=== PATIENT | female | born 1980 | race Caucasian/White ===

== ENCOUNTER 2016-11-19 09:48 | Emergency (ER) | payer BC ==
[~2016-11-19] VITALS: Ht 170.2 cm; Wt 60.1 kg
[~2016-11-19 09:48] MED LIST: MTR600X PO; PRENTAB26 PO
[2016-11-19 09:51] VITALS: TEMP 36.7; Ht 170.2 cm; Wt 60.1 kg
[2016-11-19] MEDS ORDERED: SODIUM CHLORIDE 0.9% 1000ML 1,000 ML IV STA ×2 (10:23)
[2016-11-19] MEDS ORDERED: FENTANYL CITRATE INJ 50 MCG/1 ML 2 ML VIAL IV STA (10:23)
[2016-11-19] MEDS ORDERED: ONDANSETRON INJ 2 MG/ML 2 ML VIAL IV STA ×2 (10:23→13:47)
[2016-11-19] MEDS ORDERED: OPTIRAY 320 IV PRN (10:30)
[2016-11-19 10:50] LABS: BASO % 0.2 %; BASO ABS # 0.02 K/uL (0-0.2); COMPLETE YES; EOS % 0.2 %; HEMATOCRIT 40.1 % (37-47); IG% 0.2 %; LYMPH % 6.4 %; LYMPH ABS # 0.75 K/uL (1.2-3.4); MEAN CELL VOLUME 92.4 fL (80-100); MEAN CORPUSCULAR HEMOGLOBIN 31.3 pg (25-34); MEAN CORPUSCULAR HGB CONC 33.9 g/dl (32-36); MEAN PLATELET VOLUME 10.5 fL (7.4-10.4); MONO % 2.4 %; NEUT % 90.6 %; PLATELET COUNT 243 K/uL (130-400); RED BLOOD COUNT 4.34 M/uL (4.2-5.4); WHITE BLOOD COUNT 11.78 K/uL (4.8-10.8)
[2016-11-19 10:56] LABS: BUN/CREATININE RATIO 18.6 (10-20); CREATININE 0.67 mg/dl (0.60-1.20); POTASSIUM 3.3 mmol/L (3.5-5.1)
[2016-11-19 10:58] LABS: ALB/GLOB RATIO 1.2 (0.9-2)
[2016-11-19 11:12] LABS: URINE APPEARANCE CLEAR (CLEAR); URINE BILIRUBIN NEG (NEG); URINE COLOR YELLOW; URINE NITRITE NEG (NEG); URINE SPECIFIC GRAVITY 1.017 (1.000-1.030); UROBILINOGEN NEG (NEG)
[2016-11-19 11:18] LABS: MANUAL MICROSCOPIC REQUIRED? NO; REVIEW REQ? NO
--- NOTE | 2016-11-19 13:34 | DIAGNOSTIC IMAGING REPORT ---
CT SCAN OF THE ABDOMEN AND PELVIS WITH IV CONTRAST CLINICAL HISTORY: Nausea and bloating. Right-sided abdominal pain. COMPARISON STUDY: No priors. TECHNIQUE: Following the IV administration of 93 cc of Optiray 320, CT scan of the abdomen and pelvis is performed from the lung bases to the proximal femora. Images are reviewed in the axial, sagittal, and coronal planes. IV contrast was administered without complication. Automated dose control exposure was utilized. CT DOSE: 341.63 mGycm FINDINGS: Lung bases: The heart is normal in size and without pericardial effusion. There is a trace left pleural effusion and dependent atelectasis. The lung bases are otherwise clear. Liver: The contrast-enhanced liver is normal in size, contour, and attenuation. There is no intrahepatic biliary ductal dilatation. The hepatic veins and portal veins are patent. Gallbladder: Unremarkable. Spleen: Normal in size and attenuation. Pancreas: Unremarkable. Adrenal glands: Unremarkable. Kidneys: The contrast enhanced kidneys are normal in size and without hydronephrosis. The kidneys enhance symmetrically. A 1.2 cm cyst is noted in the right upper pole. There is a small volume of free fluid in the cul-de-sac. Abdominal vasculature: The abdominal aorta is normal in course and caliber. Bowel: The small bowel and colon are normal in course and caliber. There is moderate colonic fecal retention. The appendix is not clearly visualized. Peritoneum: There is no intraperitoneal free air or abdominal ascites. Lymphadenopathy: None. Pelvic viscera: The bladder and uterus are normal as imaged. Bilateral ovarian follicles are observed. The largest is on the right and measures 2.6 cm. Skeletal structures: No lytic or blastic lesions are seen. Mild lumbosacral scoliosis is noted. There is degenerative sclerosis and partial fusion of the sacroiliac joints. IMPRESSION: 1. There are no acute infectious or inflammatory findings in the abdomen or pelvis noting nonvisualization of the appendix. If there is strong clinical concern for acute appendicitis then short-term follow-up should be considered. 2. There is a small volume of free fluid in the cul-de-sac, likely within physiologic limits. Electronically signed by: Valeriano Almanza M.D. 11/19/2016 1:33 PM Dictated Date/Time: 11/19/2016 1:25 PM
[2016-11-19] MEDS ORDERED: MoRPHine SULFATE 4 MG/ML 1 ML CARP\\VIAL IV STA (13:47)
[2016-11-19] MEDS ORDERED: MoRPHine SULFATE 4 MG/ML 1 ML CARP\\VIAL IV PRN (14:00)
--- NOTE | 2016-11-19 15:22 | DIAGNOSTIC IMAGING REPORT ---
PELVIC ULTRASOUND CLINICAL HISTORY: Right-sided abdominal pain. Right ovarian cyst by CT. COMPARISON STUDY: Pelvic ultrasound September 01, [address] of the abdomen and pelvis November 19, 2016. TECHNIQUE: Transabdominal and transvaginal sonography of the pelvis was performed. FINDINGS: The uterus measures 7.7 x 4.5 x 5.5 cm. Endometrium measures 1 cm in thickness. The right ovary measures 2.9 x 2.9 x 2.5 cm and the left measures 2.2 x 3.2 x 2.4 cm. There are follicles within each ovary. Color flow is identified within each ovary. A small amount of fluid is noted within the pelvis. There is fluid within the endometrial cavity. IMPRESSION: 1. No sonographic evidence of ovarian torsion. 2. Several follicles within the ovaries. 3. Small amount of fluid within the pelvis. Electronically signed by: Cezar David M.D. 11/19/2016 3:20 PM Dictated Date/Time: 11/19/2016 3:17 PM
--- NOTE | 2016-11-19 15:38 | EMERGENCY ROOM VISIT NOTE ---
History First contact with patient: 10:01 Chief Complaint: ABDOMINAL PAIN Stated Complaint: STOMACH PAIN Nursing Triage Summary: pt developed "gas pain" last pm at 2000 hours pt reports some nausea took Ga X no relief pt saw pcp this am and referred to ER for appey rule out History of Present Illness Patient is an otherwise healthy 36-year-old white female who presents to emergency department for evaluation of abdominal pain times roughly 12 hours. She states that she was feeling well and was in her usual state of health until yesterday evening. She began to develop some generalized abdominal discomfort. She describes it as feeling "gassy." The pain steadily escalated throughout the evening. She tried taking Gas-X and an acid, without relief. The pain was at its worst between midnight and 1:30 this morning. She denies nausea or vomiting, but does note some belching. She states that at its worst she would' ve rated it a 10/10, and was curled up on the floor, she describes it as feeling like she was "in labor." The pain subsided on its own between 1:30 and 5:00 this morning and she was able to sleep. She states the pain again began to increase when she woke up. She states that she felt a lot of pressure, but it was milder than it had been over 90. She again took Gas-X this morning which she states did help slightly. She was able to get in to see her PCP, Dr. Stephen, who went and examined her, noted that she had right lower quadrant pain and thus directed her to the emergency department for further care and evaluation. She reportedly had a low-grade fever at the [facility] office, but denies feeling feverish or having chills at home and is afebrile here. She presently rates her discomfort a 3/10. She reports a history of dysmenorrhea, which was primarily when she was younger, and denies any history of gynecologic issues or ovarian cyst. Last menstrual cycle was 2 weeks ago. She denies any urinary symptoms. Bowel movements have been fairly normal, she states she had 2 small bowel movements yesterday, denies blood or melena. Pain is essentially throughout the entire abdomen, does not wrap around to the back or flanks. She has a history of C-sections 2. Review of Systems Review of systems as per HPI. All other systems reviewed were negative. 10 systems reviewed. Past Medical/Surgical History Medical Problems: (1) No Known Active Medical Problems Surgical Problems: (1) H/O section Electronic medical records are reviewed and summarized as above/below. See Problem List. Social History Smoking Status: Never Smoker Alcohol Use: occasionally Marital Status: Housing Status: lives with family Occupation Status: employed Current/Historical Medications Scheduled PRN Hydrocodone/Acetaminophen 5MG/325MG (Amston 5MG/325MG), 1-4 TABLETS PO Q4 PRN for Pain Allergies Coded Allergies: Amoxicillin (Verified Allergy, Intermediate, HIVES, 11/19/16) Cefixime (Verified Allergy, Intermediate, HIVES, 11/19/16) Cephalexin (Verified Allergy, Intermediate, HIVES, 11/19/16) Clavulanic Acid (Verified Allergy, Intermediate, HIVES, 11/19/16) Erythromycin (Verified Allergy, Intermediate, HIVES, 11/19/16) Penicillins (Verified Allergy, Intermediate, HIVES, 11/19/16) Sodium Benzoate (Verified Allergy, Intermediate, HIVES, 11/19/16) Sulfa Drugs (Verified Allergy, Intermediate, HIVES, 11/19/16) Tetracycline (Verified Allergy, Intermediate, HIVES, 11/19/16) Physical Exam Vital Signs Date Time Temp Pulse Resp B/P Pulse Ox O2 Delivery O2 Flow Rate FiO2 11/19/16 14:57 74 16 120/72 100 Room Air 11/19/16 14:08 79 20 127/98 100 Room Air 11/19/16 11:20 74 20 108/74 97 11/19/16 09:51 36.7 94 18 148/73 100 Room Air Physical Exam CONSTITUTIONAL: Patient is a thin, mildly uncomfortable 36-year-old white female who is awake and alert and in no acute distress. EYES: Pupils equal, round, reactive to light and accommodation. EOMs intact without nystagmus. Sclera are anicteric. ENT: Tympanic membranes intact, with normal landmarks. External canals are clear. Oral and nasopharynx are clear. Mucous membranes are moist, no lesions , tongue and gums appear normal. CARDIOVASCULAR: Regular rate and rhythm, with normal S1 and S2, no murmur or gallop or rub is heard. No carotid bruits auscultated. No JVD. Peripheral pulses easy to palpable. RESPIRATORY: Breath sounds equal and clear to auscultation without wheezes, rales, or rhonchi heard. Full and equal chest expansion without accessory muscle use or retractions. GI: Bowel sounds are present. Well-healed Pfannenstiel surgical incision noted. Abdomen is soft, nondistended, diffusely tender to percussion throughout. She has discomfort in the suprapubic and right lower quadrants, with voluntary guarding. No rebound tenderness. MUSCULOSKELETAL: Full range of motion of extremities x 4 with good strength. No cyanosis, edema, joint tenderness or swelling. No deformity. INTEGUMENTARY: No lesions or rash, normal skin turgor. NEUROLOGICAL: Alert, oriented, and cooperative. Cranial nerves, sensation and strength grossly intact. Pupils round, equal, and react to light, EOMs are full. LYMPH: No lymphadenopathy. Medical Decision & Procedures ER Provider Diagnostic Interpretation: PELVIC ULTRASOUND CLINICAL HISTORY: Right-sided abdominal pain. Right ovarian cyst by CT. COMPARISON STUDY: Pelvic ultrasound September 01, [address] of the abdomen and pelvis November 19, 2016. TECHNIQUE: Transabdominal and transvaginal sonography of the pelvis was performed. FINDINGS: The uterus measures 7.7 x 4.5 x 5.5 cm. Endometrium measures 1 cm in thickness. The right ovary measures 2.9 x 2.9 x 2.5 cm and the left measures 2.2 x 3.2 x 2.4 cm. There are follicles within each ovary. Color flow is identified within each ovary. A small amount of fluid is noted within the pelvis. There is fluid within the endometrial cavity. IMPRESSION: 1. No sonographic evidence of ovarian torsion. 2. Several follicles within the ovaries. 3. Small amount of fluid within the pelvis. CT SCAN OF THE ABDOMEN AND PELVIS WITH IV CONTRAST CLINICAL HISTORY: Nausea and bloating. Right-sided abdominal pain. COMPARISON STUDY: No priors. TECHNIQUE: Following the IV administration of 93 cc of Optiray 320, CT scan of the abdomen and pelvis is performed from the lung bases to the proximal femora. Images are reviewed in the axial, sagittal, and coronal planes. IV contrast was administered without complication. Automated dose control exposure was utilized. CT DOSE: 341.63 mGycm FINDINGS: Lung bases: The heart is normal in size and without pericardial effusion. There is a trace left pleural effusion and dependent atelectasis. The lung bases are otherwise clear. Liver: The contrast-enhanced liver is normal in size, contour, and attenuation. There is no intrahepatic biliary ductal dilatation. The hepatic veins and portal veins are patent. Gallbladder: Unremarkable. Spleen: Normal in size and attenuation. Pancreas: Unremarkable. Adrenal glands: Unremarkable. Kidneys: The contrast enhanced kidneys are normal in size and without hydronephrosis. The kidneys enhance symmetrically. A 1.2 cm cyst is noted in the right upper pole. There is a small volume of free fluid in the cul-de-sac. Abdominal vasculature: The abdominal aorta is normal in course and caliber. Bowel: The small bowel and colon are normal in course and caliber. There is moderate colonic fecal retention. The appendix is not clearly visualized. Peritoneum: There is no intraperitoneal free air or abdominal ascites. Lymphadenopathy: None. Pelvic viscera: The bladder and uterus are normal as imaged. Bilateral ovarian follicles are observed. The largest is on the right and measures 2.6 cm. Skeletal structures: No lytic or blastic lesions are seen. Mild lumbosacral scoliosis is noted. There is degenerative sclerosis and partial fusion of the sacroiliac joints. IMPRESSION: 1. There are no acute infectious or inflammatory findings in the abdomen or pelvis noting nonvisualization of the appendix. If there is strong clinical concern for acute appendicitis then short-term follow-up should be considered. 2. There is a small volume of free fluid in the cul-de-sac, likely within physiologic limits. Laboratory Results 11/19/16 10:05 Red Blood Count 4.34, Mean Corpuscular Volume 92.4, Mean Corpuscular Hemoglobin 31.3, Mean Corpuscular Hemoglobin Concent 33.9, Mean Platelet Volume 10.5, Neutrophils (%) (Auto) 90.6, Lymphocytes (%) (Auto) 6.4, Monocytes (%) (Auto) 2.4, Eosinophils (%) (Auto) 0.2, Basophils (%) (Auto) 0.2, Neutrophils # (Auto) 10.69, Lymphocytes # (Auto) 0.75, Monocytes # (Auto) 0.28, Eosinophils # (Auto) 0.02, Basophils # (Auto) 0.02 11/19/16 10:05 Test 11/19/16 10:00 11/19/16 10:05 Urine Color YELLOW Urine Appearance CLEAR (CLEAR) Urine pH 7.0 (4.5-7.5) Urine Specific [place] 1.017 (1.000-1.030) Urine Protein NEG (NEG) Urine Glucose (UA) NEG (NEG) Urine Ketones 1+ (NEG) Urine Occult Blood NEG (NEG) Urine Nitrite NEG (NEG) Urine Bilirubin NEG (NEG) Urine Urobilinogen NEG (NEG) Urine Leukocyte Esterase NEG (NEG) Urine WBC (Auto) 1-5 /hpf (0-5) Urine RBC (Auto) 0-4 /hpf (0-4) Urine Hyaline Casts (Auto) 0 /lpf (0-5) Urine Epithelial Cells (Auto) 10-20 /lpf (0-5) Urine Bacteria (Auto) NEG (NEG) Urine Test NEG (NEG) White Blood Count 11.78 K/uL (4.8-10.8) Red Blood Count 4.34 M/uL (4.2-5.4) Hemoglobin 13.6 g/dL (12.0-16.0) Hematocrit 40.1 % (37-47) Mean Corpuscular Volume 92.4 fL (80-100) Mean Corpuscular Hemoglobin 31.3 pg (25-34) Mean Corpuscular Hemoglobin Concent 33.9 g/dl (32-36) Platelet Count 243 K/uL (130-400) Mean Platelet Volume 10.5 fL (7.4-10.4) Neutrophils (%) (Auto) 90.6 % Lymphocytes (%) (Auto) 6.4 % Monocytes (%) (Auto) 2.4 % Eosinophils (%) (Auto) 0.2 % Basophils (%) (Auto) 0.2 % Neutrophils # (Auto) 10.69 K/uL (1.4-6.5) Lymphocytes # (Auto) 0.75 K/uL (1.2-3.4) Monocytes # (Auto) 0.28 K/uL (0.11-0.59) Eosinophils # (Auto) 0.02 K/uL (0-0.5) Basophils # (Auto) 0.02 K/uL (0-0.2) RDW Standard Deviation 41.9 fL (36.4-46.3) RDW Coefficient of Variation 12.3 % (11.5-14.5) Immature Granulocyte % (Auto) 0.2 % Immature Granulocyte # (Auto) 0.02 K/uL (0.00-0.02) Anion Gap 7.0 mmol/L (3-11) Est Creatinine Clear Calc Drug Dose 110.1 ml/min Estimated GFR () 131.1 Estimated GFR (Non- 113.1 BUN/Creatinine Ratio 18.6 (10-20) Calcium Level 9.0 mg/dl (8.5-10.1) Total Bilirubin 0.5 mg/dl (0.2-1) Aspartate Amino Transf (AST/SGOT) 16 U/L (15-37) Alanine Aminotransferase (ALT/SGPT) 21 U/L (12-78) Alkaline Phosphatase 71 U/L (45-117) Total Protein 8.6 gm/dl (6.4-8.2) Albumin 4.6 gm/dl (3.4-5.0) Globulin 4.0 gm/dl (2.5-4.0) Albumin/Globulin Ratio 1.2 (0.9-2) Lipase 131 U/L (73-393) Medications Administered Medications (Trade) Dose Ordered Sig/Ottoniel Route Start Time Stop Time Status Last Admin Dose Admin Sodium Chloride 1,000 ml @ 999 mls/hr Q1H1M STAT IV 11/19/16 10:23 11/19/16 11:23 DC 11/19/16 10:43 999 MLS/HR Sodium Chloride (Nss 1000ml) 1,000 ml @ 250 mls/hr Q4H STAT IV 11/19/16 10:23 11/19/16 14:22 DC 11/19/16 11:20 250 MLS/HR Ondansetron HCl (Zofran Inj) 4 mg NOW STAT IV 11/19/16 10:23 11/19/16 10:27 DC 11/19/16 10:43 4 MG Fentanyl Citrate (Fentanyl Inj) 50 mcg NOW STAT IV 11/19/16 10:23 11/19/16 10:27 DC 11/19/16 10:44 50 MCG Morphine Sulfate (MoRPHine SULFATE INJ) 4 mg NOW STAT IV 11/19/16 13:47 11/19/16 13:48 DC 11/19/16 14:05 4 MG Ondansetron HCl (Zofran Inj) 4 mg NOW STAT IV 11/19/16 13:47 11/19/16 13:48 DC 11/19/16 14:14 4 MG ED Course The patient was seen and assessed as above. Her old records were reviewed. IV lock was initiated and she was hydrated with normal saline. She was medicated initially with Zofran 4 mg IV and fentanyl 50 g IV. This provided her with little relief, and later she requested additional medication for pain and was given morphine 4 mg IV, then morphine 4 mg IV every hour as needed for pain. She did also receive an additional dose of Zofran 4 mg IV with the morphine. Laboratory studies were collected including CBC with differential, CMP and lipase. Urinalysis and urine test were both performed. Given the patient's right lower quadrant pain, CT scan of the abdomen and pelvis with IV and oral contrast was ordered. Laboratory studies revealed a minimally elevated white count at 11,700, with left shift. No bandemia noted. H&H is normal. Potassium slightly low at 3.3, otherwise electrolytes are within normal limits. Renal functions are normal. Liver functions and lipase are not elevated. Urinalysis is clear, noting 1+ ketones, and no indicators for infection. The patient tolerated the CT prep without difficulty. CT scan noted the small bowel and colon to be normal in course and caliber. There is moderate colonic fecal retention. The appendix was not clearly visualized. There was no intraperitoneal free air. Bladder and uterus are normal. Bilateral ovarian follicles are observed, largest on the right measuring 2.6 cm. Radiologist noted no acute infectious or inflammatory findings in the abdomen or the pelvis noting nonvisualization of the appendix. Small volume of free fluid in the pelvic cul-de-sac was likely within physiologic limits. All laboratory and diagnostic imaging findings were reviewed with the patient and her at length. Given the questionable cyst on the right ovary, I did recommend pursuing pelvic ultrasound, which was performed. Ultrasound noted several follicles within the ovaries, did not comment on any larger cyst. There is no sonographic evidence for torsion. Ultrasound findings were reviewed with the patient and her . Conservative care measures were discussed. She has had pain for roughly 12 hours, and on exam does have some right lower quadrant discomfort. She has a minimally elevated white count. She has been afebrile here. I did discuss the limitations of the CT scan, and certainly if she has a very early appendicitis, that there may not be any findings on CT. She was therefore counseled at length regarding the signs and symptoms for which she should return to the emergency department, including but not limited to persistent or worsening pain , fevers or vomiting. She was given a small prescription for Amston to use as needed for severe pain, however was encouraged to use pase-nij-twhakgo medications including ibuprofen and acetaminophen and warm compresses. I counseled that the narcotics could mask signs of worsening pain or worsen her constipation, and she expressed understanding of this. She reported good relief of her pain with the IV morphine. She rated her pain a 2/10 at discharge. Differential diagnoses entertained included UTI, pyelonephritis, renal colic, appendicitis, ovarian cyst, ovarian torsion, , affect the , PID, tubo-ovarian abscess, hernia, bowel section perforation, among others. Medical Decision See ED Course. Impression Primary Impression: Right lower quadrant abdominal pain Additional Impression: Right ovarian cyst Departure Information Prescriptions Hydrocodone/Acetaminophen 5MG/325MG (Amston 5MG/325MG) Tab 1-4 TABLETS PO Q4 Y for Pain, #10 TAB For Initial Treatment Prov: Liz Bishop PA 11/19/16 Referrals Damon Stephen M.D.([facility]) (PCP) Patient Instructions [facility] Additional Instructions DO NOT drive, drink alcohol, operate machinery, or perform dangerous activities today. You were given medications in the ER that can affect your ability to safely function or operate a vehicle. Hydrocodone/Acetaminophen (Amston) 5/325 mg: Take 1-2 pills every four hours for breakthrough pain. Avoid alcohol, operating machinery or dangerous equipment, working on ladders or roofs, DRIVING, or situations where being under the influence may be dangerous. It is recommended to use an fxck-eke-bxpmiik stool softener such as Colace, 100mg twice daily while taking this medication to avoid constipation. Ibuprofen(Motrin, Advil) may be used for fever or pain. Use 600mg every six hours as needed. Take with food. Avoid using more than 2400mg in a 24 hour period. Do not use 2400mg per day for more than three consecutive days without physician direction. Prolonged inappropriate use can lead to stomach upset or ulcers. This is available over the counter and typically comes in 200mg tablets. (AND/OR) Acetaminophen(Tylenol) may be used for fever or pain. Use 1000mg every eight hours as needed. Avoid using more than 3000mg in a 24 hour period. This is available over the counter. Rest and drink plenty of fluids as tolerated. Slow sips of water or sports drinks are recommended instead of large amounts all at once. Continue current medications. Once your stomach is settled start with a clear liquid diet (jello, soup broth, etc.) and then advance as tolerated. You should avoid full, heavy meals for about 24 hrs from the time your symptoms resolved. Return to the ER immediately for worsening or persistent abdominal pain, vomiting, fevers, chest pains, difficulty breathing, black or bloody stools, worsening of your condition, or as needed. Follow up with your primary physician in 1-2 days for a recheck of your current condition. Follow-up with gynecology. Call their office this week to notify them of your ED visit, and to set up a follow-up appointment. Problem Qualifiers
[2016-11-19] MEDS ORDERED: HYDR-5688 PO (15:57)
[2016-11-19 16:15] VITALS: BP 111/68; PULSE 69; O2SAT 99
== END 2016-11-19 15:55 | disposition home or self-care (01) ==
LOC: C.EDB 09:49
DX: R10.31 Right lower quadrant pain (principal); N83.201 Unspecified ovarian cyst, right side; K59.00 Constipation, unspecified

== ENCOUNTER 2019-04-03 05:52 | Observation (INO) ==
--- NOTE | 2019-03-07 15:00 | PAT Medication Instructions ---
Medication Instructions Date of Service March 07, 2019 Home Medications mskeboojcqbz-Ni-ipto-minerals tablet 1 tab PO QAM ascorbic acid (vitamin C) [Vitamin C] 1 g PO QAM docusate sodium [Stool Softener] 100 mg PO UD PRN ferrous sulfate [iron] 325 mg PO QAM DO NOT take the morning of surgery whgnedfpukhk-Jx-sdlv-minerals tablet 1 tab PO QAM ascorbic acid (vitamin C) [Vitamin C] 1 g PO QAM docusate sodium [Stool Softener] 100 mg PO UD PRN ferrous sulfate [iron] 325 mg PO QAM Other Notes If you have any questions please call us at [phone] or [phone] or [phone] or [phone]
--- NOTE | 2019-03-09 14:25 | Anesthesiology Consultation ---
Date of Service March 09, 2019 Assessment & Plan (1) Encounter for pre-operative examination: - Check test AM DOS Chart Review Chart Review: Pending: Refer to Additional Notes / Consult section (pending preop testing (labs)) and Patient seen in Pre Admission Testing Teaching & Discussion Pre-Anesthesia Teaching/Discussion Notes: Instructed NPO after midnight before surgery,except medications with 15 cc of water. Medication instructions provided according to the PAT guidelines. History Surgery Operation Date: 04/03/19 07:30 Proposed Procedures p Robotic Total Laparoscopic Hysterectomy - Rachele Collins MD, FACOG Height/Weight Height: 5 ft 7 in Weight: 58 kg Allergies Allergy/AdvReac Type Severity Reaction Status Date / Time amoxicillin Allergy Unknown HIVES Verified 02/27/19 10:21 cefixime Allergy Unknown HIVES Verified 02/27/19 10:21 cephalexin Allergy Unknown HIVES Verified 03/09/19 14:36 clavulanic acid Allergy Unknown HIVES Verified 02/27/19 10:21 erythromycin base Allergy Unknown HIVES Verified 02/27/19 10:21 Penicillins Allergy Unknown HIVES Verified 02/27/19 10:21 sodium benzoate Allergy Unknown HIVES Verified 02/27/19 10:21 Sulfa (Sulfonamide Allergy Unknown HIVES Verified 02/27/19 10:21 Antibiotics) tetracycline Allergy Unknown HIVES Verified 02/27/19 10:21 Medications Home Medications Medication Instructions Recorded Confirmed Last Taken [id number]-Gp-ymku-minerals 1 tab PO QAM tab 01/31/19 03/09/19 Unknown tablet ascorbic acid (vitamin C) [Vitamin 1 g PO QAM 02/27/19 03/09/19 Unknown C] docusate sodium [Stool Softener] 100 mg PO UD PRN 02/27/19 03/09/19 Unknown ferrous sulfate [iron] 325 mg PO QAM 02/27/19 03/09/19 Unknown Past Medical History Medical History Menorrhagia with regular cycle Exercise / Class Metabolic Activity II 4-5 Yardwork/Stairs/Walk up hill Past Family History Family History Mother Family history of mitral valve prolapse Past Surgical History Surgical History History of 2 sections Past Anesthesia History No Hx of Anesthesia Complications (except post-op nausea x 1) and No Family Hx of Anesthesia Complications History of PONV History of PONV (post-op nausea x 1 episode*) and Hx of Motion Sickness Social History Smoking Status: Never smoker Do You Dip or Chew Tobacco: No Hx Alcohol Use: Yes alcohol intake frequency: holidays/special occasions only Hx Substance Use: No substance use type: does not use Review of Systems Patient denies chest pain, shortness of breath, dyspnea on exertion, reflux, cough, wheezing, palpitations. Physical Exam Vital Signs VITALS BP 119/77 P 81 TEMP 98.6 SP02 100%RA RESP 16 PHYSICAL Full neck and c-spine range of motion. Full TMJ range of motion. TMD 2.5 finger breaths Mallampati Score 2 Dentition: intact Lungs: clear throughout to auscultation Cardiac: regular rate and rhythm, no murmurs noted Spine: normal Extremities: no edema Testing Laboratory Results 03/09/19 14:46 Blood Type A Negative 03/09/19 14:46 Antibody Screen NEGATIVE 03/09/19 14:46
[2019-03-09 16:26] LABS: Basophils # (auto) 0.03 K/uL (0-0.2); Basophils % (auto) 0.4 %; Eosinophils # (auto) 0.08 K/uL (0-0.5); Eosinophils % (auto) 1.2 %; Hematocrit (blood only) 37.8 % (37-47); Hemoglobin 12.7 g/dL (12.0-16.0); Immature Granulocytes # (auto) 0.01 K/uL (0.00-0.02); Immature Granulocytes % (auto) 0.1 %; Lymphocytes # (auto) 1.37 K/uL (1.2-3.4); Lymphocytes % (auto) 20.4 %; Mean Corpuscular Hemoglobin 31.4 pg (25-34); Mean Corpuscular Hgb Conc 33.6 g/dL (32-36); Mean Corpuscular Volume 93.6 fL (80-100); Monocytes # (auto) 0.29 K/uL (0.11-0.59); Monocytes % (auto) 4.3 %; Neutrophils # (auto) 4.95 K/uL (1.4-6.5); Neutrophils % (auto) 73.6 %; Platelet Count 284 K/uL (130-400); RDW Coefficient of Variation 12.8 % (11.5-14.5); RDW Standard Deviation 43.7 fL (36.4-46.3); Red Blood Count 4.04 M/uL (4.2-5.4); White Blood Count 6.73 K/uL (4.8-10.8)
[2019-04-03] MEDS ORDERED: LR 500ML BOLUS, THEN 15ML/HR IV SCH (06:00)
[2019-04-03] MEDS ORDERED: CLINDAMYCIN 600 MG/54 ML BAG IV SCH (06:00)
[2019-04-03] MEDS ORDERED: LR 15ML/HR IV SCH (06:00)
[2019-04-03] MEDS ORDERED: LACTATED RINGER'S 1,000 ML IV SCH ×2 (06:00→09:45)
[2019-04-03] MEDS ORDERED: ACETAMINOPHEN 1000 MG/100 ML IV IV ONE (06:38)
[2019-04-03] MEDS ORDERED: SCOPOLAMINE 1.5 MG TDSY TD ONE (06:42)
[2019-04-03] MEDS ORDERED: SCOPOLAMINE 1.5 MG TDSY ONE (06:43)
[2019-04-03] MEDS ORDERED: DEXAMETHASONE SOD INJ 4 MG/ML VIAL ONE (06:52)
[2019-04-03] MEDS ORDERED: LIDOCAINE HCL 2% 2 ML VIAL/AMP(20MG/ML) INFIL ONE (06:52)
[2019-04-03] MEDS ORDERED: PROPOFOL IV EMULSION 10 MG/ML 20 ML VIAL IV ONE (06:52)
[2019-04-03] MEDS ORDERED: ONDANSETRON INJ 2 MG/ML 2 ML VIAL ONE (06:52)
[2019-04-03] MEDS ORDERED: MIDAZOLAM HCL 1 MG/ML 2ML VIAL ONE (06:52)
[2019-04-03] MEDS ORDERED: fentaNYL citrate 100 MCG/2 ML VIAL ONE ×3 (06:52→09:51)
[2019-04-03] MEDS ORDERED: LARYING-O-JET KIT (LTA) ONE (06:53)
[2019-04-03] MEDS ORDERED: NALOXONE HCL 1 MG in SODIUM CHLORIDE 0.9% 1000ML 1,000 ML IV PRN (06:58)
[2019-04-03] MEDS ORDERED: NALBUPHINE HCL INJ 10 MG/ML AMP IV PRN (06:58)
[2019-04-03] MEDS ORDERED: LACTATED RINGER'S 500 ML IV PRN (06:58)
[2019-04-03] MEDS ORDERED: DiphenhydrAMINE HCL 50 MG/ML VIAL IV PRN (06:58)
[2019-04-03] MEDS ORDERED: ONDANSETRON INJ 2 MG/ML 2 ML VIAL IV PRN ×3 (06:58→12:06)
[2019-04-03] MEDS ORDERED: MoRPHine SULFATE PF 1 MG/ML 10 ML AMP/VIAL INT SPINAL ONE (06:58)
[2019-04-03] MEDS ORDERED: KETOROLAC 30 MG/ML VIAL IV PRN ×2 (06:58→09:43)
[2019-04-03] MEDS ORDERED: NALOXONE HCL 0.08 MG in SYRINGE 1.8 ML IV PRN (06:58)
[2019-04-03] MEDS ORDERED: MEPERIDINE HCL 25 MG/ML CARP IV PRN ×2 (06:58→11:19)
[2019-04-03] MEDS ORDERED: NALOXONE HCL 0.4 MG/1 ML VIAL/CARP IV PRN (06:58)
[2019-04-03] MEDS ORDERED: ePHEDrine sulfate 50 MG/ML AMP IV PRN ×3 (06:58→07:03)
[2019-04-03] MEDS ORDERED: DC INTRASPINAL MORPHINE SCH (07:00)
[2019-04-03] MEDS ORDERED: NO NARCOTICS OR SEDATIVES SCH (07:00)
[2019-04-03] MEDS ORDERED: SODIUM CHLORIDE 0.9% 1000ML 1,000 ML IV SCH (07:00)
[2019-04-03] MEDS ORDERED: ATROPINE SULFATE 0.1 MG/ML 10ML SYR IV PRN ×2 (07:01→07:03)
[2019-04-03] MEDS ORDERED: METHYLENE BLUE 0.5% 10 ML VIAL ONE (07:02)
[2019-04-03] MEDS ORDERED: BUPIVACAINE 0.5 % 5 MG/1 ML MPF 30ML VIAL ONE (07:02)
[2019-04-03] MEDS ORDERED: fentaNYL citrate 100 MCG/2 ML VIAL IV PRN (07:03)
--- NOTE | 2019-04-03 07:17 | History & Physical Bridge Note ---
Date of Service April 03, 2019 History & Physical Bridge Note I have examined the patient, reviewed the History & Physical and in the interval since the performance of the History & Physical I have noted the following changes of clinical significance: no changes noted
[2019-04-03 07:30] LABS: Pregnancy Test, Serum Negative (Negative)
[2019-04-03] MEDS ORDERED: ATROPINE SO4 1 MG/ML 1ML VIAL ONE (08:19)
[2019-04-03] MEDS ORDERED: ePHEDrine sulfate 50 MG/ML SYR ONE (08:19)
[2019-04-03] MEDS ORDERED: GLYCOPYRROLATE 0.2 MG/ML VIAL ONE ×2 (08:19→09:25)
[2019-04-03] MEDS ORDERED: NEOSTIGMINE METHYLSULFATE 5 MG/5 ML SYR ONE (09:26)
[2019-04-03] MEDS ORDERED: KETOROLAC 30 MG/ML VIAL ONE (09:30)
[2019-04-03] MEDS ORDERED: ACETAMINOPHEN 325 MG TAB PO PRN (09:43)
[2019-04-03] MEDS ORDERED: IBUPROFEN 600 MG TAB PO PRN (09:43)
[2019-04-03] MEDS ORDERED: SIMETHICONE 80 MG CHEW PO PRN (09:43)
[2019-04-03] MEDS ORDERED: OXYCODONE/ACETAMINOPHEN 5mg/325mg TAB PO PRN ×2 (09:43)
--- NOTE | 2019-04-03 09:43 | Post Operative Brief Note ---
PG Immediate Post Op with CF Date of Surgery April 03, 2019 Pre & Post Diagnosis Operation Date: 04/03/19 07:30 Pre-Op Diagnosis: Menorrhagia, intrauterine mass Post-Op Diagnosis: Menorrhagia, intrauterine mass Procedure Operation Date: 04/03/19 07:30 Actual Procedures p Robotic Total Laparoscopic Hysterectomy, Bilateral Salpingectomies, cystoscopy(Not Applicable) - Rachele Collins MD, FACOG Surgeon Rachele Collins MD, FACOG Seismograph Chief nursing Estimated Blood Loss 25 Findings Consistent with Post-Op Diagnosis Specimens Specimen Description: A. Uterus, cervix, bilateral fallopian tubes Drains Raymond Catheter
[2019-04-03] MEDS ORDERED: MEPERIDINE HCL 50 MG/ML CARP IV PRN (11:19)
--- NOTE | 2019-04-03 11:33 | Anesthesiology Progress Note ---
Date of Service April 03, 2019 Anesthesia Post Procedure Vital Signs Vital Signs: Temp Pulse Pulse Resp BP Pulse Ox 04/03/19 10:45 65 15 107/63 100 04/03/19 10:30 99.0 F 58 L 16 98/58 L 100 04/03/19 10:20 61 11 L 106/61 100 04/03/19 10:10 60 11 L 92/61 L 100 04/03/19 10:00 66 15 106/57 L 100 04/03/19 09:54 97.3 F L 68 12 98/58 L 100 04/03/19 06:19 98.2 F 80 20 100 Pain Intensity Lower Abdomen: Pain Intensity: 0 Transfer of Care Handoff Completed per policy Notes Mental Status: alert / awake / arousable and participated in evaluation Patient Amnestic to Procedure: Yes Nausea / Vomiting: adequately controlled Pain: adequately controlled Airway Patency, RR, SpO2: stable & adequate BP & HR: stable & adequate Hydration State: stable & adequate Anesthetic Complications: no major complications apparent and Pt Satisfied with anesthetic care
[2019-04-03] MEDS ORDERED: CHECK SCOPOLAMINE PATCH PLACEMENT SCH (16:00)
--- NOTE | 2019-04-03 17:59 | Operative Report ---
DATE OF OPERATION: 04/03/2019 PREOPERATIVE DIAGNOSES: Large intrauterine mass with menorrhagia. POSTOPERATIVE DIAGNOSES: Large intracavitary fibroid with menorrhagia. SURGEON: Rachele Collins MD. ASSISTANT HOUSEKEEPING MANAGER: Nursing. ANESTHESIA: General per endotracheal tube. ESTIMATED BLOOD LOSS: 25 mL. FLUIDS: 1400 mL. URINE OUTPUT: 200 mL of clear yellow urine drained from her first Raymond catheter at the beginning of the procedure. INDICATIONS: Rachele is a 39-year-old white female 2, para 2, x2 who started having very heavy flooding. At the beginning of July, she was evaluated and found to have a large 5 cm intracavitary mass that was suspected to be a fibroid. After discussion of options, she has decided on definitive therapy of hysterectomy. FINDINGS: Retroverted retroflexed uterus. Uterus sounded to 10 cm. Externally the uterus appeared normal. The left tube and ovary were normal. The right tube and ovary were adhesed to the right pelvic sidewall. These were easily released. Otherwise, the pelvis was normal. Upper abdomen, liver edge and gallbladder as well were normal. On opening of the specimen, after removal, there was a large 5 cm long x 3-4 cm wide intracavitary mass that appears to be a fibroid that was completely filling the uterine cavity. The overlying endometrium appears thin and within normal limits. COMPLICATIONS: None. DRAINS: Raymond. DISPOSITION: To recovery room in stable condition. DESCRIPTION OF PROCEDURE: The patient was taken to the operating room where she was identified verbally and by bracelet. She was placed in dorsal supine position where general anesthesia was induced without difficulty. She was then placed in dorsal lithotomy position in [facility]-cane stirrups. Her arms were carefully tucked at her side. Her chest was protected. The head of precision targeting was placed and she was prepped and draped in normal sterile fashion. A time-out was held, identifying correct patient positioning, equipment and preoperative antibiotic. There were no concerns. Attention was turned to the vagina where a Raymond catheter was placed. A speculum was placed in the vagina. The anterior lip of the cervix was grasped with a single tooth tenaculum. The uterus sounded to 10 cm. It was dilated to a #21 Hegar dilator. The Biletuare uterine manipulator was placed into the uterus and so to the cervix at approximately 9 o'clock with an 0 Vicryl suture. Gloves were then changed. Attention was then turned to the abdomen where a supraumbilical incision approximately 2 fingerbreadths above the umbilicus was made with a knife. The Veress needle was placed through this, opening pressure was 1 mmHg. The abdomen was then insufflated with 2.9 liters of carbon dioxide gas. A 12 mm optical trocar was then placed through this and direct intraabdominal placement was obtained. The patient was then placed into Trendelenburg position and just as we were ready to place the accessory trocars, the patient had an episode of bradycardia down to the 20s. This was attended by anesthesia. Please see their record, but the gas was released from the abdomen and the patient was taken out of Trendelenburg while we were treating this. Once this was treated, the patient was placed back into Trendelenburg. The abdomen was insufflated and she tolerated the rest of the procedure without further incident. Two 8 mm trocars were placed in the right and left lower quadrant under direct visualization. The left upper quadrant 10 mm trocar was placed under direct visualization. Evaluation of the pelvis revealed as noted above. There was menstrual blood additionally noted within the pelvis. The da Duran surgical scheduler device was then placed connected to the trocars and attention was then turned to the console. First on the right and then on the left, the tubes were excised. The tubo-ovarian ligaments and round ligaments were cauterized and incised with scissors. The ovarian arteries were identified. A bladder flap was created anteriorly sharply with scissors and the bladder was moved down, the uterine arteries on both sides were cauterized and cut using hot zina. Once the bladder was down a 365-degree colpotomy incision was made around the green cup of the VCare until the specimen was removed. The uterosacral ligaments and posterior vaginal wall was very thick and difficult to go through. The specimen was then easily removed through the vagina. A glove was placed in the vagina and then the vagina was reapproximated with 2 sutures of 2-0 VCare suture. Attention was then turned to cystoscopy and with a 70-degree scope the bladder was filled. There were no stitches within the bladder. Both ureters were evaluated and found to be peristalsing slightly green-tinged fluid. The cystoscopy was then discontinued. Another Raymond catheter was placed after the previous one had been removed and then the gloves were then changed. Attention was then turned to the abdomen where all trocars were removed. A [id number]-qr-uftlo suture was placed at the fascia of the supraumbilical incision and all incisions were then closed with 4-0 Vicryl in subcuticular fashion. All incisions were infiltrated with 0.5% Marcaine and treated with Dermabond. All sponge, lap and needle counts were correct x2. The patient tolerated the procedure well and was taken to the recovery room in stable condition. I attest to the content of the Intraoperative Record and any orders documented therein. Any exception s are noted below.
--- NOTE | 2019-04-04 23:30 | Discharge Summary ---
ADMISSION DIAGNOSES: Menorrhagia and large intracavitary uterine mass. DISCHARGE DIAGNOSES: Menorrhagia and large intracavitary uterine mass. PROCEDURES: 1. Total laparoscopic hysterectomy and bilateral salpingectomy. 2. Cystoscopy. HISTORY OF PRESENT ILLNESS: The patient is a 39-year-old white female G2, P2 with x2 and vasectomy for contraception who was having very heavy and painful periods since July of this year. She was originally evaluated at an outside institution and found to have a thickened lining. She had an SIS here had a 5+ cm probable intracavitary fibroid. Options were discussed with the patient and she has elected to proceed with hysterectomy. On SIS, the lining appears very thin. The uterus is overall enlarged, but not particularly on examination. Endo biopsy at an outside institution was benign with inactive endometrium with progestin effect. Her periods are regular, but so heavy it looks like a "crime scene" with soiling and changing double protection hourly for 3 days. For the rest of the patient's history and physical, please see her admit history and physical. ASSESSMENT: This is a 39-year-old G2, P2 using vasectomy for contraception who has menorrhagia and a large intracavitary mass, likely a fibroid. We plan to proceed with total laparoscopic hysterectomy, bilateral salpingectomy and cystoscopy. HOSPITAL COURSE: The patient was admitted to the hospital. She underwent a total laparoscopic hysterectomy and bilateral salpingectomy and cystoscopy without difficulty. She lost about 25 mL of blood. Findings at the time of surgery revealed a retroverted, retroflexed uterus that sounded to 10 cm. There were no appreciable adnexal masses on examination. The left tube and ovary were normal. The right tube and ovary were adhesed to the right pelvic sidewall and these were easily released. Upper abdomen, liver edge and gallbladder were all normal. On opening the specimen after removal, there was a 5 cm long x 3-4 cm wide intracavitary mass that appears to be a fibroid emanating from the fundus that completely filled the uterine cavity. During the procedure, the patient had an episode of bradycardia after the patient had her abdomen insufflated with gas and placed into Trendelenburg position. This was resolved after removing the patient from Trendelenburg, letting the gas out and giving the patient drugs. This did not recur during the course of the procedure. The patient had her Raymond catheter removed and voided without difficulty. She tolerated some regular diet. She took her oral pain medications and was discharged to home on the night of surgery. Her only issue was that she noted some slight blurry vision when she was looking at something very close up for example, her phone. We will continue to monitor this.
== END 2019-04-03 20:30 | disposition home or self-care (01) ==
LOC: 4S2 05:52 → ASU 05:52